=== PATIENT | male | born 1995 | race Caucasian/White ===

== ENCOUNTER 2017-06-21 19:50 | Inpatient (IN) | payer BC, OTHER ==
[~2017-06-21] VITALS: Ht 193 cm; Wt 107.8 kg
--- OUTSIDE RECORDS SUMMARY | 2017-06-21 19:57 | XMS REPORT | Continuity of Care Document ---
Demographics Preferred Language Unknown Marital Status Unknown Worship Affiliation Unknown Race Unknown Ethnic Group Unknown Author Author [facility] Address Unknown Phone Unavailable Allergies There is no data. Medications There is no data. Problems There is no data. Procedures There is no data. Results There is no data. Encounters ACCT No. Visit Date/Time Discharge Status Pt. Type Provider Facility Loc./Unit Complaint [id number] 06/13/2012 19:38:10 Document Registration
[2017-06-21] MEDS ORDERED: NS IV 1000 ML 1,000 ML IV ONE (22:16)
--- NOTE | 2017-06-21 22:18 | ED EENT ---
History of Present Illness General Chief Complaint: Eye Problems Stated Complaint: RIGHT EYE PROBLEMS Nursing Triage Note: right eye swelling that began yesterday. Seen at urgent care today and prescribed Bactroban, Erythromycin, and Clindamycin. Source: patient Exam Limitations: no limitations History of Present Illness Date Seen by Provider: June 21, 2017 Time Seen by Provider: 22:08 Initial Comments Here with complaint of swelling and redness around the right eye that has worsened markedly over the past 24 hours. Seen at urgent care earlier today and initiated on clindamycin as well as eye ointment. Swelling and redness have worsened despite treatment. Onset after scratching an area that was itching near the lateral aspect of the right eye and then has progressively and markedly worsened since. Denies fever or chills. Denies nausea or vomiting. Timing/Duration: abrupt Severity: moderate Location: eye (R) Prearrival Treatment: prescription meds Associated Symptoms: No cough; facial pain/swelling; No fever, No nasal congestion/drainage Allergies and Home Medications Allergies Coded Allergies: No Known Drug Allergies (Unverified , 06/21/17) Patient Home Medication List Home Medication List Reviewed: Yes Review of Systems Constitutional: see HPI; No chills, No fever Eyes: See HPI, Inflammation, Pain Ears: No Symptoms Reported Nose: no symptoms reported Mouth: no symptoms reported Throat: no symptoms reported Respiratory: no symptoms reported; No cough, No short of breath Cardiovascular: No chest pain, No edema Gastrointestinal: No abdominal pain, No nausea, No vomiting Musculoskeletal: no symptoms reported Skin: see HPI, change in color, lesions Neurological: No Symptoms Reported All Other Systems Reviewed Negative Unless Noted: Yes Past Suhsbih-Olzxsm-Plizgg Hx Patient Social History Alcohol Use: Denies Use Recreational Drug Use: No Smoking Status: Never a Smoker Recent Foreign Travel: No Contact w/Someone Who Travel: No Recent Infectious Disease Expo: No Recent Hopitalizations: No Physical Abuse: No Sexual Abuse: No Mistreated: No Fear: No Immunizations Up To Date Tetanus Booster (TDap): Less than 5yrs Seasonal Allergies Seasonal Allergies: No Past Medical History Surgeries: No Respiratory: No Cardiac: No Neurological: No Sexually Transmitted Disease: No HIV/AIDS: No Genitourinary: No Gastrointestinal: No Musculoskeletal: No Endocrine: No HEENT: No Cancer: No Psychosocial: No Nursing Suicide Risk Score: 1 Integumentary: No Blood Disorders: No Adverse Reaction/Blood Tranf: No Family Medical History Reviewed Nursing Family Hx No Pertinent Family Hx Physical Exam Vital Signs Vital Signs - First Documented 06/21/17 20:00 Temp 97.6 Pulse 66 Resp 18 B/P (MAP) 153/97 (115) Pulse Ox 98 O2 Delivery Room Air General Appearance: WD/WN, no apparent distress Eyes: right eye lid inflammation, right eye other (markedly swelling and erythema around the right eye involving upper and lower lids from the area of the restorationism across to the bridge of the nose.); left eye normal inspection; bilateral eye PERRL, bilateral eye EOMI Ears: bilateral ear auricle normal, bilateral ear canal normal, bilateral ear TM normal Mouth/Throat: normal mouth inspection, pharynx normal Neck: full range of motion, supple Cardiovascular: regular rate, rhythm, no murmur Respiratory: lungs clear, normal breath sounds Gastrointestinal: non tender, soft Neurologic/Psychiatric: alert, oriented x 3 Skin: warm/dry, other (skin changes to the face as noted above.) Progress/Results/Core Measures Lab Results Laboratory Tests Test 06/21/17 22:24 Range/Units White Blood Count 7.0 4.3-11.0 10^3/uL Red Blood Count 5.49 4.35-5.85 10^6/uL Hemoglobin 14.5 13.3-17.7 G/DL Hematocrit 43 40-54 % Mean Corpuscular Volume 79 L 80-99 FL Mean Corpuscular Hemoglobin 26 25-34 PG Mean Corpuscular Hemoglobin Concent 34 32-36 G/DL Red Cell Distribution Width 12.8 10.0-14.5 % Platelet Count 280 130-400 10^3/uL Mean Platelet Volume 9.7 7.4-10.4 FL Neutrophils (%) (Auto) 55 42-75 % Lymphocytes (%) (Auto) 28 12-44 % Monocytes (%) (Auto) 10 0-12 % Eosinophils (%) (Auto) 6 0-10 % Basophils (%) (Auto) 1 0-10 % Neutrophils # (Auto) 3.9 1.8-7.8 X 10^3 Lymphocytes # (Auto) 2.0 1.0-4.0 X 10^3 Monocytes # (Auto) 0.7 0.0-1.0 X 10^3 Eosinophils # (Auto) 0.4 H 0.0-0.3 10^3/uL Basophils # (Auto) 0.1 0.0-0.1 10^3/uL Sodium Level 141 135-145 MMOL/L Potassium Level 3.9 3.6-5.0 MMOL/L Chloride Level 103 98-107 MMOL/L Carbon Dioxide Level 26 21-32 MMOL/L Anion Gap 12 5-14 MMOL/L Blood Urea Nitrogen 17 7-18 MG/DL Creatinine 1.24 0.60-1.30 MG/DL Estimat Glomerular Filtration Rate > 60 BUN/Creatinine Ratio 14 Glucose Level 89 70-105 MG/DL Lactic Acid Level 1.58 0.50-2.00 MMOL/L Calcium Level 9.9 8.5-10.1 MG/DL Total Bilirubin 0.4 0.1-1.0 MG/DL Aspartate Amino Transf (AST/SGOT) 43 H 5-34 U/L Alanine Aminotransferase (ALT/SGPT) 57 H 0-55 U/L Alkaline Phosphatase 84 40-136 U/L C-Reactive Protein High Sensitivity 0.08 0.00-0.50 MG/DL Total Protein 7.6 6.4-8.2 GM/DL Albumin 4.7 H 3.2-4.5 GM/DL My Orders Orders - JOSEPH CASTILLO MD Cbc With Automated Diff (06/21/17 22:16) Comprehensive Metabolic Panel (06/21/17 22:16) Hs C Reactive Protein (06/21/17 22:16) Lactic Acid Analyzer (06/21/17 22:16) Blood Culture (06/21/17 22:16) Saline Lock/Iv-Start (06/21/17 22:16) Ns Iv 1000 Ml (Sodium Chloride 0.9%) (06/21/17 22:16) Ct Maxillofacial W (06/21/17 22:16) Iohexol Injection (Omnipaque 350 Mg/Ml 1 (06/21/17 22:45) Ns (Ivpb) (Sodium Chloride 0.9%) (06/21/17 22:45) Ceftriaxone Injection (Rocephin Injectio (06/21/17 23:30) Vancomycin 1 Gm Iv (1x Dose) (06/22/17 00:30) Medications Given in ED Current Medications Medications Dose Ordered Sig/Noa Route Start Time Stop Time Status Last Admin Dose Admin Ceftriaxone Sodium 1000 mg/ Sodium Chloride 100 ml @ 200 mls/hr ONCE ONCE IV 06/21/17 23:30 06/21/17 23:59 DC 06/21/17 23:55 200 MLS/HR Iohexol 100 ml ONCE ONCE IV 06/21/17 22:45 06/21/17 22:46 DC 06/21/17 22:49 100 ML Sodium Chloride 250 ml ONCE ONCE IV 06/21/17 22:45 06/21/17 22:46 DC 06/21/17 22:49 80 ML Sodium Chloride 1,000 ml @ 0 mls/hr Q0M ONCE IV 06/21/17 22:16 06/21/17 22:18 DC 06/21/17 22:28 0 MLS/HR Vital Signs/I&O 06/21/17 06/21/17 06/21/17 06/21/17 20:00 20:30 21:00 21:30 Temp 97.6 Pulse 66 68 70 77 Resp 18 18 18 18 B/P (MAP) 153/97 (115) 139/70 121/69 139/74 Pulse Ox 98 98 98 100 O2 Delivery Room Air Room Air Room Air Room Air 06/21/17 06/21/17 06/21/17 22:00 22:30 23:00 Pulse 68 76 74 Resp 18 18 18 B/P (MAP) 133/69 129/69 Pulse Ox 99 98 99 O2 Delivery Room Air Room Air Room Air 06/22/17 00:00 Intake Total 1000 ml Balance 1000 ml Blood Pressure Mean: 115 Progress Note : Progress Note Seen and evaluated. IV, labs, blood cultures and lactic acid ordered. Rocephin 1 g IV and vancomycin 1 g IV. I did discuss the case with Dr. DERAS at 2342. Due to findings and concerns of extension to the area of the nose from the lateral aspect of the face, patient would benefit from IV antibiotics. These have been initiated. Dr. DERAS accepts patient for admission, inpatient status. We will continue Rocephin and vancomycin as he seems to be failing clindamycin. All findings and concerns were discussed with patient and family who agree with plan. Diagonstic Imaging: CT Plain Films/CT/US/NM/MRI: other (maxillofacial with contrast) Comments Right periorbital/facial swelling in the soft tissue. No intraorbital extension. No drainable collection. Reviewed: Reviewed Night Hawk Study, Reviewed by Me Departure Communication (Admissions) Time/Spoke to Admitting Phy: 23:42 Impression Primary Impression: Periorbital cellulitis of right eye Disposition: ADMITTED INPATIENT Condition: Stable Admissions Decision to Admit Reason: Admit from ER (General) Decision to Admit/Date: June 21, 2017 Time/Decision to Admit Time: 23:42 Departure-Patient Inst. Referrals: NO,LOCAL PHYSICIAN (PCP) Primary Care Physician JOSEPH CASTILLO MD June 21, 2017 22:18
[2017-06-21 22:28] LABS: BASOPHILS # (AUTO) 0.1 10^3/uL (0.0-0.1); BASOPHILS % (AUTO) 1 % (0-10); EOSINOPHILS # (AUTO) 0.4 10^3/uL (0.0-0.3); EOSINOPHILS % (AUTO) 6 % (0-10); HEMATOCRIT 43 % (40-54); HEMOGLOBIN 14.5 G/DL (13.3-17.7); LYMPHOCYTES % (AUTO) 28 % (12-44); MEAN CORPUSCULAR HEMOGLOBIN 26 PG (25-34); MEAN CORPUSCULAR HGB CONC 34 G/DL (32-36); MEAN CORPUSCULAR VOLUME 79 FL (80-99); MEAN PLATELET VOLUME 9.7 FL (7.4-10.4); MONOCYTES # (AUTO) 0.7 X 10^3 (0.0-1.0); MONOCYTES % (AUTO) 10 % (0-12); NEUTROPHILS # (AUTO) 3.9 X 10^3 (1.8-7.8); NEUTROPHILS % (AUTO) 55 % (42-75); PLATELET COUNT 280 10^3/uL (130-400); RED BLOOD COUNT 5.49 10^6/uL (4.35-5.85); RED CELL DISTRIBUTION WIDTH 12.8 % (10.0-14.5)
[2017-06-21] MEDS ORDERED: IOHEXOL 350 MG/ML 100 ML (OMNIPAQUE 350) VIAL IV ONE (22:45)
[2017-06-21] MEDS ORDERED: NS 250 ML (IVPB) BAG IV ONE (22:45)
[2017-06-21 22:46] LABS: ALANINE AMINOTRANSFERASE 57 U/L (0-55); ALBUMIN 4.7 GM/DL (3.2-4.5); ALKALINE PHOSPHATASE 84 U/L (40-136); BILIRUBIN,TOTAL 0.4 MG/DL (0.1-1.0); BUN/CREATININE RATIO 14; CALCIUM 9.9 MG/DL (8.5-10.1); CARBON DIOXIDE 26 MMOL/L (21-32); CHLORIDE 103 MMOL/L (98-107); CREATININE SERUM 1.24 MG/DL (0.60-1.30); GFR ESTIMATED > 60; GLUCOSE 89 MG/DL (70-105); POTASSIUM 3.9 MMOL/L (3.6-5.0); SODIUM 141 MMOL/L (135-145); TOTAL PROTEIN 7.6 GM/DL (6.4-8.2)
[2017-06-21] MEDS ORDERED: cefTRIAXone INJECTION 1,000 MG in NS (IVPB) 100 ML IV ONE (23:30)
[2017-06-22] MEDS ORDERED: VANCOMYCIN INJECTION 1,000 MG in NS (IVPB) 250 ML IV ONE (00:30)
--- OUTSIDE RECORDS SUMMARY | 2017-06-22 01:01 | XMS REPORT | Continuity of Care Document ---
Demographics Preferred Language Unknown Marital Status Unknown Restorationism Affiliation Unknown Race Unknown Ethnic Group Unknown Author Author [facility] Address Unknown Phone Unavailable Allergies There is no data. Medications There is no data. Problems There is no data. Procedures There is no data. Results There is no data. Encounters ACCT No. Visit Date/Time Discharge Status Pt. Type Provider Facility Loc./Unit Complaint [id number] 06/13/2012 19:38:10 Document Registration
[2017-06-22 04:01] VITALS: BP 140/73
[2017-06-22] MEDS ORDERED: ACETAMINOPHEN 500 MG TAB (TYLENOL) PO PRN (04:30)
[2017-06-22] MEDS ORDERED: KETOROLAC 30 MG/ML VIAL IV PRN (04:30)
[2017-06-22] MEDS ORDERED: CATHETER FLUSH 10 ML SYR IV PRN (04:30)
[2017-06-22 05:19] LABS: BASOPHILS % (AUTO) 0 % (0-10); EOSINOPHILS # (AUTO) 0.4 10^3/uL (0.0-0.3); EOSINOPHILS % (AUTO) 5 % (0-10); HEMATOCRIT 40 % (40-54); HEMOGLOBIN 13.6 G/DL (13.3-17.7); LYMPHOCYTES # (AUTO) 1.5 X 10^3 (1.0-4.0); LYMPHOCYTES % (AUTO) 21 % (12-44); MEAN CORPUSCULAR HEMOGLOBIN 27 PG (25-34); MEAN CORPUSCULAR HGB CONC 34 G/DL (32-36); MEAN CORPUSCULAR VOLUME 79 FL (80-99); MEAN PLATELET VOLUME 9.8 FL (7.4-10.4); MONOCYTES # (AUTO) 0.6 X 10^3 (0.0-1.0); MONOCYTES % (AUTO) 9 % (0-12); NEUTROPHILS # (AUTO) 4.7 X 10^3 (1.8-7.8); NEUTROPHILS % (AUTO) 65 % (42-75); PLATELET COUNT 247 10^3/uL (130-400); RED BLOOD COUNT 5.01 10^6/uL (4.35-5.85); WHITE BLOOD COUNT 7.3 10^3/uL (4.3-11.0)
[2017-06-22] MEDS: CATHETER FLUSH 10 ML SYR IV SCH ×3 (05:32→22:56)
[2017-06-22 05:39] LABS: BUN/CREATININE RATIO 15; CALCIUM 9.5 MG/DL (8.5-10.1); CARBON DIOXIDE 26 MMOL/L (21-32); CHLORIDE 105 MMOL/L (98-107); CREATININE SERUM 0.98 MG/DL (0.60-1.30); GFR ESTIMATED > 60; GLUCOSE 95 MG/DL (70-105); POTASSIUM 4.1 MMOL/L (3.6-5.0); SODIUM 139 MMOL/L (135-145)
--- NOTE | 2017-06-22 06:44 | Diagnostic Imaging Report ---
PROCEDURE: CT maxillofacial with contrast. TECHNIQUE: After intravenous administration of contrast, axial images were obtained through the face and reformatted into coronal and sagittal planes. INDICATION: Right eye swelling and redness. There is soft tissue swelling of the superficial tissues surrounding the right orbit. There is no intraorbital extension. The globe appears normal. The extraocular muscles and optic nerve are normal. No bony abnormalities. IMPRESSION: Periorbital cellulitis. These findings are concordant with the preliminary report. Dictated by: Dictated on workstation # [id number]
[2017-06-22 08:00] VITALS: BP 135/74
[2017-06-22] MEDS: VANCOMYCIN INJECTION 1,500 MG in NS IV 500 ML 500 ML IV SCH ×3 (08:17→22:56)
[2017-06-22] MEDS ORDERED: CLIN300C11 PO (09:17)
[2017-06-22] MEDS ORDERED: ERYT1OIN6 OD (09:17)
[2017-06-22] MEDS ORDERED: MUPI22OI2 TOP (09:17)
[2017-06-22] MEDS ORDERED: PIPERACILLIN SODIUM/TAZOBACTAM 4.5 GM in NS (IVPB) 100 ML IV NR (11:00)
--- NOTE | 2017-06-22 11:10 | History & Physical-Hospitalist ---
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 He states his symptoms started on Tuesday when he noticed a scratch on his catholic and some swelling around his eye. He went to urgent care and was given and IM antibiotic (he believes it was rocephin) and an rx for eye drops and Clindamycin but his symptoms continued to worsen. He texted his girlfriend's dad who is a physician who advised him to seek evaluation in the ER. There he had a CT scan which revealed preseptal cellulitis and he was admitted for IV abx. He denies any blurry vision or eye pain. He has no previous symptoms. Source: patient, family Exam Limitations: no limitations Date Seen 06/22/17 Time Seen by Provider: 10:35 (e) Attending Physician Anival Durbin MD PCP No,Local Physician Referring Physician Date of Admission June 21, 2017 at 23:55 Home Medications & Allergies Home Medications Reviewed patient Home Medication Reconciliation performed by pharmacy medication reconciliations roof technician and/or nursing. Patients Allergies have been reviewed. Allergies Allergies Coded Allergies No Known Drug Allergies (Unverified06/21/17) Past Ynsfrzm-Ywyjyb-Avoafh Hx Past Med/Social Hx: Reviewed Nursing Past Med/Soc Hx Patient Social History Marrital Status: single Alcohol Use: Denies Use Recreational Drug Use: No Smoking Status: Never a Smoker Physical Abuse Screen: No Sexual Abuse: No Recent Foreign Travel: No Contact w/other who traveled: No Recent Hopitalizations: No Recent Infectious Disease Expo: No Immunizations Up To Date Tetanus Booster (TDap): Less than 5yrs Seasonal Allergies Seasonal Allergies: No Past Medical History Sexually Transmitted Disease: No HIV/AIDS: No History of Blood Disorders: No Adverse Reaction to Blood Russo: No Family History Reviewed Nursing Family Hx Cataracts 19 MOTHER Dementia Maternal grandmother FH: stroke Maternal grandfather No Pertinent Family Hx Review of Systems Constitutional: No chills, No fever EENTM: tearing, other (eye swelling); No blurred vision, No double vision, No eye pain, No vision loss, No mouth swelling, No nose congestion, No nose pain, No throat pain Respiratory: No cough, No dyspnea on exertion, No short of breath Cardiovascular: No chest pain, No edema, No palpitations Gastrointestinal: No abdominal pain, No constipation, No diarrhea, No nausea, No vomiting Genitourinary: No dysuria, No frequency Musculoskeletal: No joint pain, No muscle pain Skin: other (erythema surrounding eye) Psychiatric/Neurological: Denies Headache, Denies Numbness, Denies Tingling Physical Exam Physical Exam Vital Signs Vital Signs - First Documented 06/21/17 20:00 Temp 97.6 Pulse 66 Resp 18 B/P (MAP) 153/97 (115) Pulse Ox 98 O2 Delivery Room Air Capillary Refill : Less Than 3 Seconds General Appearance: No Apparent Distress, WD/WN HEENT: PERRL/EOMI, Moist Mucous Membranes; No Photophobia, No Scleral Icterus ( L), No Scleral Icterus (R); Other (swelling surrounding right eye and catholic) Neck: Non Tender, Supple Respiratory: Lungs Clear, No Respiratory Distress Cardiovascular: Regular Rate, Rhythm, No Murmur Gastrointestinal: Normal Bowel Sounds, Non Tender, Soft Extremity: Normal Capillary Refill, No Calf Tenderness Neurologic/Psychiatric: Alert, Oriented x3, Normal Mood/Affect Skin: Normal Color, Warm/Dry Results Results/Procedures Labs Laboratory Tests 06/21/17 22:24 06/22/17 05:01 Patient resulted labs reviewed. Imaging: Reviewed Imaging Report Assessment/Plan Admission Diagnosis preseptal cellulitis Admission Status: Inpatient Order (span 2 midnights) Reason for Inpatient Admission: failed outpatient abx Diagnosis/Problems Diagnosis/Problems (1) Periorbital cellulitis of right eye Status: Acute Assessment & Plan: Will continue Vanc and switch to Zosyn given that he failed Rocephin and Clindamycin as an outpatient Continue monitor closely Discussed precautions with patient in regards to worsening symptoms to notify staff Clinical Quality Measures DVT/VTE Risk/Contraindication: RFS Level Per Nursing on Admit: 0=No Risk/No VTE PPX KHALIF VÁSQUEZ MD June 22, 2017 11:10
[2017-06-22 12:00] VITALS: BP 128/63
[2017-06-22] MEDS ORDERED: VANCOMYCIN 1 GM/NS 250 ML IVPB IV SCH ×2 (12:00)
[2017-06-22 15:30] VITALS: BP 126/68
[2017-06-22] MEDS: PIPERACILLIN SODIUM/TAZOBACTAM 4.5 GM in NS (IVPB) 100 ML IV SCH (17:36)
[2017-06-22 19:15] VITALS: BP 131/80
[2017-06-22] MEDS ORDERED: cefTRIAXone 1 GM/NS 100 ML IVPB IV SCH ×2 (21:00)
[2017-06-22 23:22] VITALS: BP 139/64
[2017-06-23] MEDS: PIPERACILLIN SODIUM/TAZOBACTAM 4.5 GM in NS (IVPB) 100 ML IV SCH ×3 (01:46→17:05)
[2017-06-23] MEDS: CATHETER FLUSH 10 ML SYR IV SCH ×3 (05:46→21:32)
[2017-06-23] MEDS ORDERED: TROUGH ORDER-PHARMACY XX NR (07:00)
[2017-06-23 07:49] LABS: BASOPHILS % (AUTO) 1 % (0-10); EOSINOPHILS # (AUTO) 0.5 10^3/uL (0.0-0.3); EOSINOPHILS % (AUTO) 9 % (0-10); HEMATOCRIT 41 % (40-54); HEMOGLOBIN 13.7 G/DL (13.3-17.7); LYMPHOCYTES # (AUTO) 1.2 X 10^3 (1.0-4.0); LYMPHOCYTES % (AUTO) 20 % (12-44); MEAN CORPUSCULAR HEMOGLOBIN 27 PG (25-34); MEAN CORPUSCULAR HGB CONC 34 G/DL (32-36); MEAN CORPUSCULAR VOLUME 79 FL (80-99); MEAN PLATELET VOLUME 9.6 FL (7.4-10.4); MONOCYTES # (AUTO) 0.6 X 10^3 (0.0-1.0); MONOCYTES % (AUTO) 9 % (0-12); NEUTROPHILS # (AUTO) 3.8 X 10^3 (1.8-7.8); NEUTROPHILS % (AUTO) 62 % (42-75); PLATELET COUNT 228 10^3/uL (130-400); RED BLOOD COUNT 5.15 10^6/uL (4.35-5.85); RED CELL DISTRIBUTION WIDTH 12.8 % (10.0-14.5); WHITE BLOOD COUNT 6.1 10^3/uL (4.3-11.0)
[2017-06-23 08:00] VITALS: BP 123/66
[2017-06-23 08:06] LABS: BUN/CREATININE RATIO 13; CALCIUM 9.5 MG/DL (8.5-10.1); CARBON DIOXIDE 25 MMOL/L (21-32); CHLORIDE 106 MMOL/L (98-107); CREATININE SERUM 1.09 MG/DL (0.60-1.30); GFR ESTIMATED > 60; GLUCOSE 94 MG/DL (70-105); POTASSIUM 4.2 MMOL/L (3.6-5.0); SODIUM 140 MMOL/L (135-145)
[2017-06-23 08:14] LABS: VANCOMYCIN,TROUGH 19.5 UG/ML (10.0-20.0)
[2017-06-23] MEDS: VANCOMYCIN INJECTION 1,250 MG in NS (IVPB) 250 ML IV SCH ×3 (09:08→23:43)
--- NOTE | 2017-06-23 12:23 | Progress Note-Hospitalist ---
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 He states his symptoms started on Tuesday when he noticed a scratch on his confucianist and some swelling around his eye. He went to urgent care and was given and IM antibiotic (he believes it was rocephin) and an rx for eye drops and Clindamycin but his symptoms continued to worsen. He texted his girlfriend's dad who is a physician who advised him to seek evaluation in the ER. There he had a CT scan which revealed preseptal cellulitis and he was admitted for IV abx. He denies any blurry vision or eye pain. He has no previous symptoms. Subjective/Events-last exam Pt reports improving symptoms. Swelling much improved but feels may be lower in cheek today but not as tight. Also thinks he has poison nellie on his legs and confucianist. Focused Exam Lactate Level 06/21/17 22:24: Lactic Acid Level 1.58 Objective Exam Vital Signs Vital Signs Date Time Temp Pulse Resp B/P (MAP) Pulse Ox O2 Delivery O2 Flow Rate FiO2 06/23/17 08:00 98.6 67 22 123/66 (85) 98 Room Air Capillary Refill : Less Than 3 Seconds General Appearance: No Apparent Distress, WD/WN HEENT: Moist Mucous Membranes, Other (significantly improved swelling and erythema surroungind right eye) Respiratory: Lungs Clear, No Respiratory Distress Cardiovascular: Regular Rate, Rhythm, No Murmur Gastrointestinal: Normal Bowel Sounds, Soft Neurologic/Psychiatric: Alert, Oriented x3, Normal Mood/Affect Skin: Rash Results/Procedures Lab Laboratory Tests 06/23/17 07:45 Patient resulted labs reviewed. Assessment/Plan Assessment and Plan Assess & Plan/Chief Complaint Preseptal cellulitis Diagnosis/Problems Diagnosis/Problems (1) Periorbital cellulitis of right eye Status: Acute Assessment & Plan: Much improved, Will continue Vanc and Zosyn Continue monitor closely Discussed precautions with patient in regards to worsening symptoms to notify staff (2) Poison nellie dermatitis Status: Acute Assessment & Plan: Will order topicals prn as needed Consider steroid taper if symptoms worsen Clinical Quality Measures DVT/VTE Risk/Contraindication: RFS Level Per Nursing on Admit: 0=No Risk/No VTE PPX KHALIF VÁSQUEZ MD June 23, 2017 12:23 pm
[2017-06-23] MEDS ORDERED: diphenhydrAMINE 25 MG TAB (BENADRYL) PO PRN (12:30)
[2017-06-23 15:50] VITALS: BP 126/59
[2017-06-23] MEDS: HYDROCORTISONE 2.5% CREAM (ANUSOL-HC) 30 GM TOP SCH (21:32)
[2017-06-24] VITALS: BP 137/64
[2017-06-24] MEDS: PIPERACILLIN SODIUM/TAZOBACTAM 4.5 GM in NS (IVPB) 100 ML IV SCH ×2 (00:53→09:04)
[2017-06-24] MEDS: CATHETER FLUSH 10 ML SYR IV SCH ×2 (06:00→09:05)
[2017-06-24] MEDS ORDERED: TROUGH ORDER-PHARMACY XX NR (07:30)
[2017-06-24 08:00] VITALS: BP 120/59
[2017-06-24] MEDS: VANCOMYCIN INJECTION 1,250 MG in NS (IVPB) 250 ML IV SCH (09:04)
[2017-06-24] MEDS: HYDROCORTISONE 2.5% CREAM (ANUSOL-HC) 30 GM TOP SCH (09:05)
[2017-06-24] MEDS ORDERED: AMOX-358 PO (09:49)
[2017-06-24] MEDS ORDERED: L.AC1CAP6 PO (09:49)
[2017-06-24] MEDS ORDERED: SULF1TAB35 PO (09:49)
--- NOTE | 2017-06-24 09:50 | Discharge Summary-Hospitalist ---
Diagnosis/Chief Complaint Date of Admission June 21, 2017 at 23:55 Date of Discharge Discharge Date: June 24, 2017 Admission Diagnosis preseptal cellulitis Discharge Diagnosis Preseptal cellulitis (1) Periorbital cellulitis of right eye Status: Acute Assessment & Plan: Much improved, Will continue Vanc and Zosyn Continue monitor closely Discussed precautions with patient in regards to worsening symptoms to notify staff (2) Poison nellie dermatitis Status: Acute Assessment & Plan: Will order topicals prn as needed Consider steroid taper if symptoms worsen Discharge Summary Discharge Physical Exam Allergies: Coded Allergies: No Known Drug Allergies (Unverified , 06/21/17) Vitals & I&Os Vital Signs Date Time Temp Pulse Resp B/P (MAP) Pulse Ox O2 Delivery O2 Flow Rate FiO2 06/24/17 11:45 59 18 120/60 96 Room Air 06/24/17 08:00 98.7 General Appearance: Alert, Oriented X3 Respiratory: Clear to Auscultation Cardiovascular: Regular Rate Hospital Course Pt was admitted to the hospital for failed outpatient treatment of preseptal cellulitis. He was treated at an urgent care with IM rocephin and oral clindamycin but his swelling worsened prompting him to seek evaluation in the ER. He was admitted and started on Rocephin and Vanc with minimal improvement so was switched to Zosyn. His symptoms improved dramatically and he was discharged home in stable condition on Bactrim and Augmentin. I called and discussed this with Dr Pradhan at [facility] to facilitate follow up with him on 06/27/17. I discussed return precaution with him and advised him to start on a probiotic as well. Labs (last 24 hrs) Laboratory Tests 06/24/17 07:30: Vancomycin Level Trough 18.3 Microbiology 06/21/17 Blood Culture - Preliminary, Resulted No growth Patient resulted labs reviewed. Pending Labs Discussion & Recommendations Discharge Planning: >30 minutes discharge planning Discharge Home Medications: Active Scripts Active Probiotic (L.acidoph & Paracasei,B.lactis) 1 Each Capsule 1 Each PO BID Augmentin 875-125 Tablet (Amoxicillin/Potassium Clav) 1 Each Tablet 1 Each PO BID Bactrim Ds Tablet (Sulfamethoxazole/Trimethoprim) 1 Each Tablet 1 Each PO BID Instructions to patient/family Please see electronic discharge instructions given to patient. Clinical Quality Measures DVT/VTE Risk/Contraindication: RFS Level Per Nursing on Admit: 0=No Risk/No VTE PPX Copy Copies To 1: MANOJ PRADHAN MD, KATELYN M MD June 24, 2017 09:50
[2017-06-24 11:45] VITALS: BP 120/60
== END 2017-06-24 11:45 | disposition home or self-care (01) | DRG 603 ==
LOC: ER 19:53 → 4TH 23:55
PROVIDERS: ADMIT Internal Medicine; ATTEND Internal Medicine
DX: L03.213 Periorbital cellulitis (principal); L23.7 Allergic contact dermatitis due to plants, except food
CPT/HCPCS: 36415; 70487; 80048; 80053; 80202; 83605; 85025; 86141; 87040; 96361; 96365; 96367